=== PATIENT | male | born 1955 | race Caucasian/White ===

== ENCOUNTER 2017-04-04 07:46 | Day surgery (SDC) | payer BC ==
[2017-04-04] MEDS ORDERED: LIDOCAINE 1% W/EPI 1:200,000 MPF 30ML SQ ONE (07:47)
[2017-04-04] MEDS ORDERED: MIDAZOLAM HCL 2MG/2ML VIAL IV ONE (07:47)
[2017-04-04] MEDS ORDERED: *PACU ONLY* KETAMINE HCL 10 MG/ML (20ML) VIAL IV ONE (07:47)
[2017-04-04] MEDS ORDERED: PROPOFOL 10 MG/ML VIAL IV ONE (07:47)
[2017-04-04] MEDS ORDERED: FENTANYL PF 100MCG/2ML VIAL IV ONE (07:47)
[2017-04-04] MEDS ORDERED: DEXAMETHASONE PRESERVATIVE FREE 10MG/ML VIAL IV ONE (07:47)
[2017-04-04] MEDS ORDERED: BUPIVACAINE 0.75% W/EPI MPF 30ML VIAL IVP ONE (07:47)
--- NOTE | 2017-04-04 16:38 | Operative Note - [place] ---
DATE OF SURGERY: 04/04/17 PREOPERATIVE DIAGNOSIS: CERVICAL SPONDYLOSIS, ICD-10 CODE = M47.812. OPERATION: RADIOFREQUENCY RHIZOTOMY BILATERAL CERVICAL FACETS 5-6 AND 6- 7. SURGEON: CARINA CALIXTO D.O. ANESTHESIA: LOCAL SEDATION. ANESTHESIA PROVIDER: MANDA CLARK CRNA. INDICATION: This patient presents with pain, which is neck and shoulder. Diagnostic studies show diffuse spondylosis. A previous series at 4-5, 5-6, and 6-7 resulted in 75 to 80% pain control. Insurance guidelines limit the number of levels and bilateral techniques. He is here for a bilateral 5-6 and 6-7. PROCEDURE: Intravenous line, vital sign monitoring, IV sedation, prepped, draped, sterile technique. Under imaging, facets at 5-6 and 6-7 identified and marked bilaterally. Skin infiltrated. A 22-gauge rhizotomy cannula positioned. Stimulation trials conducted. Rhizotomy burn performed. Local with anti- inflammatory into the sites. Topical antibiotics. Sterile dressing applied. We will monitor and evaluate. cc: Dr. Bartlett JOB NUMBER: [id number] [facility]
== END 2017-04-04 09:53 | disposition home or self-care (01) ==
LOC: SUR 07:46
PROVIDERS: ATTEND Pain Medicine Interventional Pain Medicine
DX: M47.812 Spondylosis without myelopathy or radiculopathy, cervical region (principal)
CPT/HCPCS: 64633; 64634 ×2; 01936; J1100; J3490